=== PATIENT | male | born 1995 | race Caucasian/White ===

== ENCOUNTER 2019-06-19 01:28 | Emergency (ER) | payer MEDICAID, OTHER ==
[~2019-06-19] VITALS: Ht 172.7 cm; Wt 77.3 kg
[~2019-06-19 01:28] MED LIST: ARIP5TAB49 PO
[2019-06-19 02:25] VITALS: BP 156/96
== END 2019-06-19 02:32 | disposition home or self-care (01) ==
LOC: ER 01:30
DX: R07.89 Other chest pain (principal); M25.571 Pain in right ankle and joints of right foot; M25.572 Pain in left ankle and joints of left foot; F17.200 Nicotine dependence, unspecified, uncomplicated; F12.90 Cannabis use, unspecified, uncomplicated
CPT/HCPCS: 93005; 99283

== ENCOUNTER 2019-07-05 00:22 | Emergency (ER) | payer OTHER ==
[~2019-07-05] VITALS: Ht 172.7 cm; Wt 77.3 kg
[2019-07-05 00:34] VITALS: BP 114/72
[2019-07-05] MEDS ORDERED: MUPI22OI30 TOP (00:58)
[2019-07-05] MEDS ORDERED: neomy sulf/bacitrac zn/polymixin b oint 14.2 gm tube TP ONE (01:00)
== END 2019-07-05 01:04 | disposition home or self-care (01) ==
LOC: ER 00:22
DX: S80.812A Abrasion, left lower leg, initial encounter (principal); F20.9 Schizophrenia, unspecified; F31.9 Bipolar disorder, unspecified; F17.200 Nicotine dependence, unspecified, uncomplicated; F12.90 Cannabis use, unspecified, uncomplicated; F15.90 Other stimulant use, unspecified, uncomplicated; Z79.899 Other long term (current) drug therapy; X58.XXXA Exposure to other specified factors, initial encounter; Y93.89 Activity, other specified; Y92.89 Other specified places as the place of occurrence of the external cause; Y90.9 Presence of alcohol in blood, level not specified; Y99.8 Other external cause status
CPT/HCPCS: 99283

== ENCOUNTER 2019-09-15 01:20 | Emergency (ER) | payer MEDICAID ==
[~2019-09-15] VITALS: Ht 170.2 cm; Wt 72.7 kg
[2019-09-15 01:24] VITALS: BP 135/94
== END 2019-09-15 01:33 | disposition home or self-care (01) ==
LOC: ER 01:21
DX: L98.8 Other specified disorders of the skin and subcutaneous tissue (principal); F31.9 Bipolar disorder, unspecified; F20.9 Schizophrenia, unspecified; F12.90 Cannabis use, unspecified, uncomplicated; F15.90 Other stimulant use, unspecified, uncomplicated; Z72.89 Other problems related to lifestyle; Z79.899 Other long term (current) drug therapy
CPT/HCPCS: 99281

== ENCOUNTER 2019-10-27 04:34 | Emergency (ER) | payer MEDICAID ==
[~2019-10-27] VITALS: Ht 172.7 cm; Wt 75.0 kg
[2019-10-27 05:38] VITALS: BP 126/71
== END 2019-10-27 05:41 | disposition home or self-care (01) ==
LOC: ER 04:35
DX: M79.604 Pain in right leg (principal); M79.605 Pain in left leg; Z76.5 Malingerer [conscious simulation]; F31.9 Bipolar disorder, unspecified; F29 Unspecified psychosis not due to a substance or known physiological condition; F20.9 Schizophrenia, unspecified; F12.90 Cannabis use, unspecified, uncomplicated; F15.90 Other stimulant use, unspecified, uncomplicated; Z79.899 Other long term (current) drug therapy
CPT/HCPCS: 99281

== ENCOUNTER 2020-03-29 23:00 | Emergency (ER) | payer MEDICAID ==
[~2020-03-29 23:00] MED LIST changes: -ARIP5TAB49 PO; +ESCI10TA PO; +HYDR-3686 PO; +NICO-668 BC; +OLAN10TA19 PO; +TRAZ-251 PO
== END 2020-03-29 23:47 | disposition left against medical advice (07) ==
LOC: ER 23:01
DX: Z53.21 Procedure and treatment not carried out due to patient leaving prior to being seen by health care provider (principal)

== ENCOUNTER 2020-06-14 09:36 | Emergency (ER) | payer MEDICAID, OTHER ==
[~2020-06-14] VITALS: Ht 177.8 cm; Wt 80.0 kg
--- NOTE | 2020-06-14 09:58 | NUR ---
OROGASTRIC TUBE IN PLACE BY JOSE REEVES
[2020-06-14 09:59] LABS: MONOCYTES # (AUTO) 0.1 X10'3 (0-0.9); RED CELL DISTRIBUTION WIDTH 12.9 % (11.5-14.5); WHITE BLOOD COUNT 3.5 X10'3 (4.5-11.0)
[2020-06-14] MEDS ORDERED: rocuronium 10mg/ml inj IV ONE (10:00)
[2020-06-14] MEDS ORDERED: epiNEPHrine 0.1mg/ml 10ml syringe ONE (10:00)
[2020-06-14] MEDS ORDERED: etomidate 2mg/ml inj. ONE (10:00)
[2020-06-14 10:01] LABS: BASOPHILS % (AUTO) 1.3 % (0-1); HEMATOCRIT 40.3 % (42.0-52.0); HEMOGLOBIN 13.2 g/dl (14.0-17.9); LYMPHOCYTES % (AUTO) 85.1 % (21-51); MEAN CORPUSCULAR HEMOGLOBIN 30.7 PG (27.0-31.0); MEAN CORPUSCULAR HGB CONC 32.8 g/dL (33.0-36.5); MEAN CORPUSCULAR VOLUME 93.6 FL (78-98); MEAN PLATELET VOLUME 8.3 FL (7.4-10.4); MONOCYTES % (AUTO) 2.3 % (2-12); NEUTROPHILS # (AUTO) 0.4 X10'3 (1.8-7.7); NEUTROPHILS % (AUTO) 10.3 % (42-75); PLATELET COUNT 270 X10'3 (140-440)
--- NOTE | 2020-06-14 10:03 | NUR ---
50 OF EPI MY .
[2020-06-14] MEDS ORDERED: iohexol 350MG/ML 100ml bottle IV ONE (10:04)
[2020-06-14 10:05] LABS: ISTAT CREATININE 1.3 mg/dL (0.8-1.3); ISTAT HGB 10.9 g/dl (14.0-18.0); ISTAT IONIZED CALCIUM 1.11 mmol/L (1.03-1.32); ISTAT K 4.8 mmol/L (3.5-5.1); POC BUN/CREATININE RATIO 17.7 (5.4-32.0)
[2020-06-14] MEDS ORDERED: NORepinephrine 8mg/ 250ml NS 250 ML IV PRN ×2 (10:05→10:11)
--- NOTE | 2020-06-14 10:18 | NUR ---
NOREPI ADMINISTERED ORDERED.
[2020-06-14 10:24] LABS: ALBUMIN 3.1 G/DL (3.4-5.0); ALBUMIN/GLOBULIN RATIO 1.3 (1.1-1.5); ALKALINE PHOSPHATASE 94 IU/L (46-116); ANION GAP 17 (8-16); BILIRUBIN,TOTAL 0.2 MG/DL (0.1-1.0); BLOOD UREA NITROGEN 17 MG/DL (7-18); BUN/CREATININE RATIO 10.5 (5.4-32.0); CALCIUM 8.6 MG/DL (8.5-10.1); CHLORIDE 107 MMOL/L (99-107); CREATININE 1.62 MG/DL (0.60-1.10); GLUCOSE 271 MG/DL (70-104); POTASSIUM 4.8 MMOL/L (3.5-5.1); SODIUM 145 MMOL/L (135-145); TOTAL CARBON DIOXIDE 21.3 MMOL/L (24-32); TOTAL PROTEIN 5.5 G/DL (6.4-8.2); eGFR 52 ML/MIN
[2020-06-14 10:32] LABS: ALANINE AMINOTRANSFERASE 2564 U/L (12-78); ASPARTATE AMINO TRANSFERASE 1786 U/L (10-37)
[2020-06-14 11:03] LABS: ABG BASE EXCESS -10.1 mmol/L (-2.0-2.0); ABG HCO3 20.1 mmol/L (22.0-26.0); ABG OXYGEN SATURATION 99.3 % (94-97); ABG PCO2 (T) 62.1 mmHg (35.0-48.0); ABG PO2 (T) 362.4 mmHg (75.0-100.0); ALLEN'S TEST POSITIVE; FCOHb 0.3 % (0.0-3.9); FMetHb 0.4 % (0.0-1.5); FO2Hb 98.6 % (94-97); PEEP 5 cm H2O; RESPIRATORY RATE 20 b/min; TIDAL VOLUME 450 mL; TOTAL HEMOGLOBIN 15.8 G/dl (14.0-18.0)
[2020-06-14 11:11] LABS: NUCLEATED RED BLOOD CELLS 1 /100WBC (0-0); PLATELET ESTIMATE NORMAL; TOTAL CELLS COUNTED 100
[2020-06-14 11:25] VITALS: BP 181/128
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
--- NOTE | 2020-06-14 11:35 | NUR ---
NURSE:NURSE GIVEN TO amaris GAN, [employer].
[2020-06-14] MEDS ORDERED: dexamethasone sod phosphate 10mg/ml inj IV STA (11:49)
--- NOTE | 2020-06-14 11:55 | NUR ---
CALLED [facility] ER AND UPDATED CRN ON COVID + STATUS.
--- NOTE | 2020-06-14 12:29 | NUR ---
VERIFIED MEDS GIVEN WHILE PT HERE W/ JULIEN, FROM [facility].
--- NOTE | 2020-06-14 13:00 | NUR ---
Pt identified Covid +. Following individuals were engaged in pt care: ABRAN Shaikh #[id number], Delroy Mclaughlin RN, Arelis Mccall RN, Sharon REEVES, RT, [facility], Patricia Radiologtangela, Tino polygraph technician, Brandon Tech.
[2020-06-14] MEDS ORDERED: piperacillin/tazo 4.5gm/100ml 100 ML IV SCH (20:00)
== END 2020-06-14 12:05 | disposition short-term general hospital (02) ==
LOC: ER 09:37 → EEVIPCON 09:37 → ER 12:05
DX: U07.1 COVID-19 (principal); S10.91XA Abrasion of unspecified part of neck, initial encounter; T71.161A Asphyxiation due to hanging, accidental, initial encounter; I46.9 Cardiac arrest, cause unspecified; R11.10 Vomiting, unspecified; F31.9 Bipolar disorder, unspecified; F20.9 Schizophrenia, unspecified; F12.90 Cannabis use, unspecified, uncomplicated; F15.90 Other stimulant use, unspecified, uncomplicated; Z72.89 Other problems related to lifestyle; Z79.899 Other long term (current) drug therapy; X58.XXXA Exposure to other specified factors, initial encounter; Y93.89 Activity, other specified; Y92.89 Other specified places as the place of occurrence of the external cause; Y99.8 Other external cause status
CPT/HCPCS: 31500; 36415; 36600; 70496; 70498; 71045; 80047; 80053; 82803; 83605; 83880; 84484; 85007; 85018; 85025; 87635; 93005; 94799; 96374; 99291; 99292; C9803; J0171; J1100; Q9967; 94002; 94640; 94760